=== PATIENT | female | born 1990 | race Caucasian/White ===

== ENCOUNTER → 2016-07-24 | Outpatient (CLI) | payer SELFPAY ==
[2015-11-08 11:41] VITALS: BP 128/88
--- NOTE | 2016-07-24 15:55 | RAD ---
HISTORY: Chronic wrist joint pain Study: Left wrist three view Comparison: None Findings: No evidence for acute cortical disruption or dislocation can be identified. The carpal bones appear well aligned. The visualized portions of the distal radius and ulna are unremarkable. No signific ant soft tissue abnormality can be identified. the joints are normal. IMPRESSION: 1. Negative exam. Reported By:
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
== END ==
LOC: RAD 14:57
PROVIDERS: ATTEND Nurse Practitioner Family
DX: M25.532 Pain in left wrist (principal); M79.642 Pain in left hand; M79.89 Other specified soft tissue disorders
CPT/HCPCS: 73100; 73130

== ENCOUNTER 2016-07-29 04:15 | Emergency (ER) | payer SELFPAY ==
[2016-07-29 04:29] VITALS: BP 115/76; BMI 24.7
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
== END 2016-07-29 05:15 | disposition home or self-care (01) ==
LOC: ER 04:15
DX: M79.602 Pain in left arm (principal)
CPT/HCPCS: 99281; 99282

== ENCOUNTER 2017-01-11 01:13 | Emergency (ER) | payer SELFPAY ==
[2017-01-11 01:24] VITALS: BP 128/73; BMI 23.9
[2017-01-11] MEDS ORDERED: AUGMENTIN 500 MG/125 MG TAB PO ONE ×2 (02:04→02:17)
[2017-01-11] MEDS ORDERED: BENADRYL CAP 50 MG PO ONE (02:05)
[2017-01-11] MEDS ORDERED: MOTRIN TAB 800 MG PO STA (02:05)
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
[2017-01-11] MEDS ORDERED: MOTRIN TAB 800 MG PO ONE (02:17)
[2017-01-11] MEDS ORDERED: BENADRYL CAP/TAB 25 MG PO ONE (02:17)
== END 2017-01-11 02:39 | disposition home or self-care (01) ==
LOC: ER 01:13
DX: J01.80 Other acute sinusitis (principal); J02.9 Acute pharyngitis, unspecified
CPT/HCPCS: 99282

== ENCOUNTER 2017-03-11 14:32 | Emergency (ER) | payer SELFPAY ==
[2017-03-11 14:41] VITALS: BP 117/66; BMI 23.9
[2017-03-11] MEDS ORDERED: NS 1000 ML 1,000 ML IV ONE (14:47)
[2017-03-11] MEDS ORDERED: ZOFRAN INJ 4 MG VIAL IVP ONE (14:47)
--- NOTE | 2017-03-11 14:48 | DR.GENAD ---
HPI - PCP Primary Care Physician: VIR[place]IA WARNER - Complaint/Symptoms Chief Complaint Doctors Comments: Patient presents with complaint of nausea and vomitng this week. Denies diarrhea or fever. Admits to severe abdominal pain. She states that she has had H Pylori x two past three years. Pain is sharp, 8/10 , the pain is generalized but worse RLQ has been present all day. Chief Complaint:: "STOMACH ISSUES SINCE FRIDAY, CANT HOLD ANYTHING DOWN AND "IV BEEN VERY WEAK" - Source History Provided: Patient - Mode of Arrival Mode of Arrival: Ambulatory - Timing Onset of Chief Complaint: 03/07/17 PMH - PMH Past Medical History: Yes Past Medical History: Hypertension Past Surgical History: Yes Surgical History: , Ortho Surgery - Family History History of Family Medical Conditions: No - Social History Does patient currently use any type of tobacco product: Yes Have you used tobacco products in the last 12 months: Yes Type of Tobacco Use: Cigarettes How many years tobacco product used: 5 Does any household member use tobacco: No Alcohol Use: None Do you use any recreational Drugs:: No Lives With: Family Lives Where: Home - infectious screening In the last 2 months have you had wt loss of >10#?: NO Have you had fever, night sweats or hemotysis?: No Have you traveled outside the country in the last 6 months?: No Isolation: Standard ROS - Review of Systems Eyes: No Symptoms Reported ENTM: No Symptoms Reported Respiratoy: No Symptoms Reported Cardiovascular: No Symptoms Reported Gastrointestinal/Abdominal: Abdominal Pain Genitourinary: No Symptoms Reported Neurological: No Symptoms Reported Musculoskeletal: No Symptoms Reported Integumentary: No Symptoms Reported Hematologic/Lymphatic: No Symptoms Reported Endocrine: No Symptoms Reported Psychiatric: No Symptoms Reported PE - Vital Signs Vitals: Temperature 98.3 F Pulse Rate 80 Respiratory Rate 18 Blood Pressure 117/66 O2 Sat by Pulse Oximetry 99 - General Limitations: No Limitations General Appearance: Alert, In No Apparent Distress - Head Head Exam: Normal Inspection, Atraumatic - Eyes Eye exam: Normal Appearance, PERRL, EOMI - ENT ENT Exam: Normal Exam External Ear Exam: Normal External Inspection TM/Canal Exam: Bilateral Normal Nose Exam: Normal Nose Exam Mouth Exam: Normal Inspection Throat Exam: Normal Inspection - Neck Neck Exam: Normal Inspection, Full ROM - Chest Chest Inspection: Normal Inspection - Respiratory Respiratory Exam: Normal Lung Sounds Bilat Respiratory Exam: Bilateral Clear to Auscultation - Cardiovascular Cardiovascular Exam: Regular Rate, Normal Rhythm - Abdominal Exam Abdominal Exam: Normal Inspection, Normal Bowel Sounds Abdominal Tenderness: negative: RUQ, RLQ, LUQ, LLQ, Epigastrium, Suprapubic, Diffuse, Mild, Moderate, Severe, Other - Extremities Extremities Exam: Normal Inspection, Full ROM - Back Back Exam: Normal Inspection - Neurologic Neurological Exam: Alert, Oriented X3, CN II-XII Intact - Psychiatric Psychiatric Exam: Normal Affect - Skin Skin Exam: Warm, Dry, Intact Course - Treatment Treatment: Clonidine 0.1mg BP 126/61 - Reevaluation 1st: Improved - Consultation Called: 15:55 ROR - Labs Reviewed Result Diagrams: 03/11/17 14:59 03/11/17 14:59 Laboratory: WBC 8.3 X10^3/uL (3.6-10.0) 03/11/17 14:59 RBC 5.10 X10^6/uL (3.5-5.4) 03/11/17 14:59 Hgb 14.6 g/dL (12.0-16.0) 03/11/17 14:59 Hct 42.4 % (36.0-47.0) 03/11/17 14:59 MCV 83.0 fL (80.0-100.0) 03/11/17 14:59 MCH 28.5 pg (27.0-34.0) 03/11/17 14:59 MCHC 34.4 g/dL (33.0-35.0) 03/11/17 14:59 RDW 15.6 % (11.6-16.5) 03/11/17 14:59 Plt Count 268 X10^3/uL (150.0-450.0) 03/11/17 14:59 MPV 9.1 fL (7.4-11.0) 03/11/17 14:59 Neut % 65.1 % (42.0-75.0) 03/11/17 14:59 Lymph % 22.5 % (21.0-51.0) 03/11/17 14:59 [place] % 8.0 % (0.0-13.0) 03/11/17 14:59 Eos % 4.0 % (0.9-2.9) H 03/11/17 14:59 Baso % 0.4 % (0.2-1.0) 03/11/17 14:59 Neut # 5.4 x10^3/uL (2.2-4.8) H 03/11/17 14:59 Lymph # 1.9 X10^3/uL (1.3-2.9) 03/11/17 14:59 [place] # 0.7 x10^3/uL (0.3-0.8) 03/11/17 14:59 Eos # 0.3 x10^3/uL (0.0-0.2) H 03/11/17 14:59 Baso # 0.0 X10^3/uL (0.0-0.1) 03/11/17 14:59 Absolute Nucleated RBC 0.0 /100WBC 03/11/17 14:59 Sodium 138 mmol/L (136-145) 03/11/17 14:59 Corrected Sodium 138 mmol/L (136-145) 03/11/17 14:59 Potassium 3.8 mmol/L (3.5-5.1) 03/11/17 14:59 Chloride 104 mmol/L (98-107) 03/11/17 14:59 Carbon Dioxide 23.5 mmol/L (21-32) 03/11/17 14:59 BUN 15 mg/dL (7-18) 03/11/17 14:59 Creatinine 1.19 mg/dL (0.55-1.02) H 03/11/17 14:59 Est GFR (MDRD) Af Amer > 60 (>60) 03/11/17 14:59 Est GFR (MDRD) Non-Af 57 (>60) L 03/11/17 14:59 Glucose 115 mg/dL (65-99) H 03/11/17 14:59 Calcium 9.2 mg/dL (8.5-10.1) 03/11/17 14:59 Corrected Calcium TNP 03/11/17 14:59 Total Bilirubin 0.50 mg/dL (0.2-1.0) 03/11/17 14:59 AST 12 Units/L (15-37) L 03/11/17 14:59 ALT 14 Units/L (12-78) 03/11/17 14:59 Alkaline Phosphatase 68 Units/L (46-116) 03/11/17 14:59 C-Reactive Protein 5.80 mg/L (0-3.0) H 03/11/17 14:59 Total Protein 7.4 g/dL (6.4-8.2) 03/11/17 14:59 Albumin 3.9 g/dL (3.4-5.0) 03/11/17 14:59 Globulin 3.5 g/dL (2.5-4.5) 03/11/17 14:59 Albumin/Globulin Ratio 1.1 Ratio (1.1-2.1) 03/11/17 14:59 Amylase 37 Units/L (25-115) 03/11/17 14:59 Lipase 136 Units/L (73-393) 03/11/17 14:59 H. pylori IgG Antibody Positive (NEGATIVE) A 03/11/17 14:59 Streptococcus Screen Negative (NEGATIVE) 03/11/17 15:26 - Diagnosis Discharge Problem: Helicobacter pylori gastritis - Discharge Plan Condition: Stable - Follow ups/Referrals Follow ups/Referrals: WES WARNER [Primary Care Provider] - 3 days - Instructions
[2017-03-11] MEDS ORDERED: ZOFRAN INJ 4 MG VIAL ONE (14:57)
[2017-03-11] MEDS ORDERED: NS 1000 ML 1,000 ML ONE (14:57)
[2017-03-11] MEDS ORDERED: BENTYL I.M. INJ 10 MG IM ONE ×2 (15:12→15:13)
[2017-03-11 15:23] LABS: BASOPHILS % (AUTO) 0.4 % (0.2-1.0); EOSINOPHILS # (AUTO) 0.3 x10^3/uL (0.0-0.2); HEMATOCRIT 42.4 % (36.0-47.0); HEMOGLOBIN 14.6 g/dL (12.0-16.0); LYMPHOCYTES # (AUTO) 1.9 X10^3/uL (1.3-2.9); LYMPHOCYTES % (AUTO) 22.5 % (21.0-51.0); MEAN CORPUSCULAR HEMOGLOBIN 28.5 pg (27.0-34.0); MEAN CORPUSCULAR HGB CONC 34.4 g/dL (33.0-35.0); MEAN PLATELET VOLUME 9.1 fL (7.4-11.0); MONOCYTES # (AUTO) 0.7 x10^3/uL (0.3-0.8); NEUTROPHILS # (AUTO) 5.4 x10^3/uL (2.2-4.8); NEUTROPHILS % (AUTO) 65.1 % (42.0-75.0); PLATELET COUNT 268 X10^3/uL (150.0-450.0); RED CELL DISTRIBUTION WIDTH 15.6 % (11.6-16.5); WHITE BLOOD COUNT 8.3 X10^3/uL (3.6-10.0)
[2017-03-11 15:43] LABS: ALANINE AMINOTRANSFERASE 14 Units/L (12-78); ALBUMIN 3.9 g/dL (3.4-5.0); ALKALINE PHOSPHATASE 68 Units/L (46-116); AMYLASE 37 Units/L (25-115); ASPARTATE AMINO TRANSFERASE 12 Units/L (15-37); BLOOD UREA NITROGEN 15 mg/dL (7-18); CALCIUM 9.2 mg/dL (8.5-10.1); CARBON DIOXIDE 23.5 mmol/L (21-32); CHLORIDE 104 mmol/L (98-107); COR NA(FOR HYPERGLY) 138 mmol/L (136-145); CREATININE 1.19 mg/dL (0.55-1.02); LIPASE 136 Units/L (73-393); SODIUM 138 mmol/L (136-145); TOTAL PROTEIN 7.4 g/dL (6.4-8.2); eGFR BLACK RACES > 60 (>60); eGFR NON BLACK RACES 57 (>60)
[2017-03-11 16:19] LABS: BILIRUBIN,URINE NEGATIVE (NEGATIVE); BLOOD/HEMOGLOBIN,URINE 3+ (NEGATIVE); GLUCOSE, URINE NEGATIVE (NEGATIVE); KETONES,URINE 2+ (NEGATIVE); LEUKOCYTE ESTERASE ,URINE 3+ (NEGATIVE); NITRITES,URINE NEGATIVE (NEGATIVE); PROTEIN,URINE 2+ (NEGATIVE); UROBILINOGEN,URINE NORMAL (NORMAL)
[2017-03-11 16:37] LABS: APPEARANCE,URINE SLIGHTLY HAZY (CLEAR); BACTERIA,URINE TRACE /HPF (NEGATIVE); COLOR,URINE YELLOW (YELLOW); SQUAMOUS EPITHELIAL CELL,UR FEW /HPF (NEGATIVE)
[2017-03-11 16:38] LABS: MUCUS,URINE MODERATE /HPF (NEGATIVE)
== END 2017-03-11 16:21 | disposition home or self-care (01) ==
LOC: ER 14:46
DX: R10.31 Right lower quadrant pain (principal); B96.81 Helicobacter pylori [H. pylori] as the cause of diseases classified elsewhere; B95.1 Streptococcus, group B, as the cause of diseases classified elsewhere
CPT/HCPCS: 36415; 80053; 81001; 82150; 83690; 85025; 86140; 86677; 87070; 87086; 87088; 87186; 87880; 96365; 96372; 96374; 99283; A4222; J0500; J2405

== ENCOUNTER 2017-04-16 23:46 | Emergency (ER) | payer SELFPAY ==
[2017-04-16 23:56] VITALS: BMI 30.1
--- NOTE | 2017-04-17 00:25 | DR.GENAD ---
HPI - PCP Primary Care Physician: TIMYM - HPI Comment HPI Comment: STARTING TO HAVE SKIN RASH ALSO. SOME ABDOMINAL PAIN PRESENT. - Complaint/Symptoms Chief Complaint Doctors Comments: GENERALIZE MALAISE, SOB AND NO BM IN 4 DAYS. Chief Complaint:: PT STATES" I BEEN FEELING BAD I HVE NOT HAD A BOWEL MOVEMENT IN 4 DAYS I BEEN STRAINING REAL HARD. I STARTED TO COME UP HERE LAST NIGHT CAUSE I FELT LIKE I COULDN'T BREATHE" - Nurses notes reviewed Nurses Notes Review: Yes - Source History Provided: Patient - Mode of Arrival Mode of Arrival: Ambulatory - Timing Onset of Chief Complaint: 04/12/17 Came on: Suddenly - Duration Duration: Constant Duration: Days - Severity Severity: Moderate PMH - PMH Past Medical History: Yes Past Medical History: Anxiety, Hypertension Past Surgical History: Yes Surgical History: , Ortho Surgery - Family History History of Family Medical Conditions: No - Social History Have you used tobacco products in the last 12 months: Yes Does any household member use tobacco: No Do you use any recreational Drugs:: No Lives With: Family Lives Where: Home - infectious screening In the last 2 months have you had wt loss of >10#?: NO Have you had fever, night sweats or hemotysis?: No Have you traveled outside the country in the last 6 months?: No Isolation: Standard ROS - Review of Systems Constitutional: Weakness, Fatigue. negative: Chills, Fever Eyes: negative: Eye Pain, Discharge ENTM: Nose Congestion, Throat Pain. negative: Ear Pain, Nose Discharge Respiratoy: Non-Productive Cough. negative: Short of Breath, Wheezing, Hemoptysis Cardiovascular: No Symptoms Reported Gastrointestinal/Abdominal: Abdominal Pain, Constipation, Nausea. negative: Diarrhea, Vomiting Genitourinary: No Symptoms Reported. negative: Dysuria, Frequency, Hematuria Neurological: Headache, Weakness, Dizziness Musculoskeletal: Muscle Pain Integumentary: Change in Color, Rash, Itching. negative: Juandice Hematologic/Lymphatic: No Symptoms Reported Endocrine: No Symptoms Reported All Other Systems: Reviewed and Negative PE - Vital Signs Vitals: Temperature 97.5 F Pulse Rate [Right Brachial] 77 Pulse Rate 136 Respiratory Rate 16 Blood Pressure [Right Arm] 115/72 Blood Pressure 172/86 O2 Sat by Pulse Oximetry 99 - General Limitations: No Limitations General Appearance: Alert - Head Head Exam: Normal Inspection - Eyes Eye exam: Normal Appearance - ENT ENT Exam: Normal External Ear Exam External Ear Exam: Normal External Inspection TM/Canal Exam: Bilateral Normal Nose Exam: Normal Nose Exam Mouth Exam: Normal Inspection Throat Exam: Tonsillar Erythema. negative: Tonsillomegaly, Tonsillar Exudate - Neck Neck Exam: Trachea Midline - Chest Chest Inspection: Symmetric Chest Wall Rise - Respiratory Respiratory Exam: Normal Lung Sounds Bilat Respiratory Exam: Bilateral Clear to Auscultation - Cardiovascular Cardiovascular Exam: Regular Rate, Normal Rhythm, Normal Heart Sounds - Abdominal Exam Abdominal Exam: Normal Bowel Sounds, Soft. negative: Tenderness - Extremities Extremities Exam: Normal Inspection - Back Back Exam: Normal Inspection - Neurologic Neurological Exam: Alert, Oriented X3 - Psychiatric Psychiatric Exam: Normal Affect, Normal Mood - Skin Skin Exam: Normal Color MDM - Additional Information Additional Information Obtained From: Family - Differential Diagnosis Differential Diagnosis: ABDOMINAL PAIN, GENERALIZE WEAKNESS, RASH Course - Treatment Treatment: SEE ORDERS. - Education/Counseling Education/Counseling: Patient, Family, Education Educated On: Diagnosis, Needs for Follow Up ROR - Labs Reviewed Laboratory Results Reviewed?: Yes Result Diagrams: 04/17/17 00:30 04/17/17 00:45 Laboratory: WBC 7.9 X10^3/uL (3.6-10.0) 04/17/17 00:30 RBC 4.47 X10^6/uL (3.5-5.4) 04/17/17 00:30 Hgb 12.9 g/dL (12.0-16.0) 04/17/17 00:30 Hct 37.6 % (36.0-47.0) 04/17/17 00:30 MCV 84.1 fL (80.0-100.0) 04/17/17 00:30 MCH 28.8 pg (27.0-34.0) 04/17/17 00:30 MCHC 34.3 g/dL (33.0-35.0) 04/17/17 00:30 RDW 14.6 % (11.6-16.5) 04/17/17 00:30 Plt Count 271 X10^3/uL (150.0-450.0) 04/17/17 00:30 MPV 9.3 fL (7.4-11.0) 04/17/17 00:30 Neut % 55.1 % (42.0-75.0) 04/17/17 00:30 Lymph % 25.1 % (21.0-51.0) 04/17/17 00:30 [place] % 11.2 % (0.0-13.0) 04/17/17 00:30 Eos % 5.9 % (0.9-2.9) H 04/17/17 00:30 Baso % 2.7 % (0.2-1.0) H 04/17/17 00:30 Neut # 4.3 x10^3/uL (2.2-4.8) 04/17/17 00:30 Lymph # 2.0 X10^3/uL (1.3-2.9) 04/17/17 00:30 [place] # 0.9 x10^3/uL (0.3-0.8) H 04/17/17 00:30 Eos # 0.5 x10^3/uL (0.0-0.2) H 04/17/17 00:30 Baso # 0.2 X10^3/uL (0.0-0.1) H 04/17/17 00:30 Absolute Nucleated RBC 0.0 /100WBC 04/17/17 00:30 Sodium 140 mmol/L (136-145) 04/17/17 00:45 Corrected Sodium TNP 04/17/17 00:45 Potassium 3.7 mmol/L (3.5-5.1) 04/17/17 00:45 Chloride 106 mmol/L (98-107) 04/17/17 00:45 Carbon Dioxide 26.4 mmol/L (21-32) 04/17/17 00:45 BUN 8 mg/dL (7-18) 04/17/17 00:45 Creatinine 0.87 mg/dL (0.55-1.02) 04/17/17 00:45 Est GFR (MDRD) Af Amer > 60 (>60) 04/17/17 00:45 Est GFR (MDRD) Non-Af > 60 (>60) 04/17/17 00:45 Glucose 94 mg/dL (65-99) 04/17/17 00:45 Calcium 8.3 mg/dL (8.5-10.1) L 04/17/17 00:45 Corrected Calcium TNP 04/17/17 00:45 Total Bilirubin 0.10 mg/dL (0.2-1.0) L 04/17/17 00:45 AST 12 Units/L (15-37) L 04/17/17 00:45 ALT 16 Units/L (12-78) 04/17/17 00:45 Alkaline Phosphatase 51 Units/L (46-116) 04/17/17 00:45 Total Protein 6.6 g/dL (6.4-8.2) 04/17/17 00:45 Albumin 3.6 g/dL (3.4-5.0) 04/17/17 00:45 Globulin 3.0 g/dL (2.5-4.5) 04/17/17 00:45 Albumin/Globulin Ratio 1.2 Ratio (1.1-2.1) 04/17/17 00:45 Amylase 43 Units/L (25-115) 04/17/17 00:30 Lipase 164 Units/L (73-393) 04/17/17 00:30 Specimen Type Clean catch urine 04/17/17 00:43 Urine Color Yellow (YELLOW) 04/17/17 00:43 Urine Appearance Slightly hazy (CLEAR) 04/17/17 00:43 Urine pH 6.0 (5.0 - 8.0) 04/17/17 00:43 Ur Specific [place] 1.015 (1.000-1.030) 04/17/17 00:43 Urine Protein Negative (NEGATIVE) 04/17/17 00:43 Urine Glucose (UA) Negative (NEGATIVE) 04/17/17 00:43 Urine Ketones Negative (NEGATIVE) 04/17/17 00:43 Urine Occult Blood 2+ (NEGATIVE) 04/17/17 00:43 Urine Nitrite Negative (NEGATIVE) 04/17/17 00:43 Urine Bilirubin Negative (NEGATIVE) 04/17/17 00:43 Urine Urobilinogen Normal (NORMAL) 04/17/17 00:43 Ur Leukocyte Esterase 3+ (NEGATIVE) 04/17/17 00:43 Urine RBC 3-8 /HPF (NEGATIVE) 04/17/17 00:43 Urine WBC 20-25 /HPF (NEGATIVE) 04/17/17 00:43 Ur Squamous Epith Cells Many /HPF (NEGATIVE) 04/17/17 00:43 Urine Bacteria Trace /HPF (NEGATIVE) 04/17/17 00:43 Urine Trichomonas Few /HPF (NEGATIVE) 04/17/17 00:43 Ur Culture Indicated? Yes/culture set up 04/17/17 00:43 Influenza Type A (PCR) Negative (NEGATIVE) 04/17/17 00:24 Influenza Type B (PCR) Negative (NEGATIVE) 04/17/17 00:24 S. pyogenes (TEM-PCR) Not detected (NOT DETECT) 04/17/17 00:24 - XRAY XRAY Interpreted by: Radiologist XRAY Findings: REPORT DISCUSS WITH PATIENT. - Diagnosis Discharge Problem: Viral syndrome, Malaise Abdominal pain Qualifiers: Abdominal location: generalized Qualified Code(s): R10.84 - Generalized abdominal pain - Discharge Plan Disposition: 01 HOME, SELF-CARE Condition: Stable Prescriptions: Ketorolac Tromethamine [Toradol Tab] 10 mg PO Q8H PRN #15 tab PRN Reason: Pain Ranitidine HCl [ZANTAC TAB 150 MG *] 150 mg PO BID #60 tab Sulfamethoxazole-Trimethoprim [BACTRIM DS TAB 800/160 MG *] 1 tab PO BID #20 tab - Follow ups/Referrals Follow ups/Referrals: WES WARNER [Primary Care Provider] - 3 days - Instructions Instructions: Urinary Tract Infection, Adult, [id number], Abdominal Pain, Adult, [id number]-[id number], Rash, [id number] Additional Instructions: RETURN TO ED IF WORSE.
[2017-04-17 01:06] LABS: BASOPHILS # (AUTO) 0.2 X10^3/uL (0.0-0.1); BASOPHILS % (AUTO) 2.7 % (0.2-1.0); EOSINOPHILS # (AUTO) 0.5 x10^3/uL (0.0-0.2); EOSINOPHILS % (AUTO) 5.9 % (0.9-2.9); HEMATOCRIT 37.6 % (36.0-47.0); HEMOGLOBIN 12.9 g/dL (12.0-16.0); LYMPHOCYTES % (AUTO) 25.1 % (21.0-51.0); MEAN CORPUSCULAR HEMOGLOBIN 28.8 pg (27.0-34.0); MEAN CORPUSCULAR HGB CONC 34.3 g/dL (33.0-35.0); MEAN CORPUSCULAR VOLUME 84.1 fL (80.0-100.0); MEAN PLATELET VOLUME 9.3 fL (7.4-11.0); MONOCYTES # (AUTO) 0.9 x10^3/uL (0.3-0.8); MONOCYTES % (AUTO) 11.2 % (0.0-13.0); NEUTROPHILS # (AUTO) 4.3 x10^3/uL (2.2-4.8); NEUTROPHILS % (AUTO) 55.1 % (42.0-75.0); PLATELET COUNT 271 X10^3/uL (150.0-450.0); RED BLOOD COUNT 4.47 X10^6/uL (3.5-5.4); RED CELL DISTRIBUTION WIDTH 14.6 % (11.6-16.5); WHITE BLOOD COUNT 7.9 X10^3/uL (3.6-10.0)
--- NOTE | 2017-04-17 01:23 | RAD ---
Acute abdomen series-three views Indication: Abdominal pain and diarrhea. Findings: There is no pneumothorax or effusion. The heart size is normal. There is no free air or pneumatosis. Gas and stool are seen in the colon. No dilated loop of small nidia wel identified. Impression: No acute abnormality. Reported By:
[2017-04-17 01:47] LABS: AMYLASE 43 Units/L (25-115); LIPASE 164 Units/L (73-393)
[2017-04-17 01:48] LABS: ALANINE AMINOTRANSFERASE 16 Units/L (12-78); ALBUMIN 3.6 g/dL (3.4-5.0); ALKALINE PHOSPHATASE 51 Units/L (46-116); ASPARTATE AMINO TRANSFERASE 12 Units/L (15-37); BLOOD UREA NITROGEN 8 mg/dL (7-18); CALCIUM 8.3 mg/dL (8.5-10.1); CARBON DIOXIDE 26.4 mmol/L (21-32); CHLORIDE 106 mmol/L (98-107); CREATININE 0.87 mg/dL (0.55-1.02); SODIUM 140 mmol/L (136-145); TOTAL PROTEIN 6.6 g/dL (6.4-8.2); eGFR BLACK RACES > 60 (>60); eGFR NON BLACK RACES > 60 (>60)
[2017-04-17 02:11] LABS: BILIRUBIN,URINE NEGATIVE (NEGATIVE); BLOOD/HEMOGLOBIN,URINE 2+ (NEGATIVE); GLUCOSE, URINE NEGATIVE (NEGATIVE); KETONES,URINE NEGATIVE (NEGATIVE); LEUKOCYTE ESTERASE ,URINE 3+ (NEGATIVE); NITRITES,URINE NEGATIVE (NEGATIVE); PROTEIN,URINE NEGATIVE (NEGATIVE); UROBILINOGEN,URINE NORMAL (NORMAL)
[2017-04-17 02:14] LABS: APPEARANCE,URINE SLIGHTLY HAZY (CLEAR); BACTERIA,URINE TRACE /HPF (NEGATIVE); COLOR,URINE YELLOW (YELLOW); SQUAMOUS EPITHELIAL CELL,UR MANY /HPF (NEGATIVE); TRICHOMONAS,URINE FEW /HPF (NEGATIVE)
[2017-04-17 02:28] VITALS: BP 115/72
[2017-04-17] MEDS ORDERED: BACTRIM DS TAB PO ONE ×2 (02:28→02:29)
== END 2017-04-17 02:31 | disposition home or self-care (01) ==
LOC: ER 23:46
DX: R53.81 Other malaise (principal); B97.89 Other viral agents as the cause of diseases classified elsewhere; R10.84 Generalized abdominal pain
CPT/HCPCS: 36415; 74022; 80053; 81001; 82150; 83690; 85025; 87086; 87502; 87651; 99283; 99284

== ENCOUNTER 2017-05-25 20:33 | Emergency (ER) | payer SELFPAY ==
[2017-05-25 21:01] VITALS: BP 142/79; BMI 23.0
[2017-05-25] MEDS ORDERED: REGLAN INJ 10 MG VIAL IVP STA (21:34)
[2017-05-25] MEDS ORDERED: NS 1000 ML 1,000 ML IV ONE (21:35)
[2017-05-25] MEDS ORDERED: NS 1000 ML 1,000 ML ONE (21:43)
[2017-05-25] MEDS ORDERED: REGLAN INJ 10 MG VIAL ONE (21:43)
--- NOTE | 2017-05-25 21:44 | DR.NAUSEAF ---
HPI - Time Seen Time seen: 20:20 - Primary Care Physician Primary Care Physician: TIMMY - HPI Comment HPI Comment: Cannot keep anything down since Friday, has tested + for Hpylori x 2, took abx for it about 1 month ago. No diarrhea. Chills but no measured fevers. - Complaints Chief Complaint:: N/V SINCE FRIDAY AROUND 1100, DECREASED APPETITE ALL [place]. BURNING SENSATION IN CHEST. TESTED POSITIVE FOR H PYLORI TWICE, LAST TIME WAS ABOUT A MONTH AGO. Self Treatment fo Chief Complaint: ZOFRAN AND PHENERGAN NOT WORKING - Reviewed Nurses Notes Reviewed: Yes - Source History Provided: Patient - Mode of Arrival Mode of Arrival: Ambulatory - Timing Onset of Chief Complaint: 05/23/17 PMH - PMH Past Medical History: Yes (+ Hpylori previously. ) Past Medical History: Anxiety, Hypertension Past Surgical History: Yes (remote surgery left thigh) Surgical History: , Ortho Surgery - Family History History of Family Medical Conditions: No - Social History Type of Tobacco Use: Cigarettes Alcohol Use: None Do you use any recreational Drugs:: No Lives With: Family Lives Where: Home - infectious screening Have you traveled outside the country in the last 6 months?: No Isolation: Standard ROS - Review of Systems Constitutional: Chills, Malaise, Fatigue, Loss of Appetite Eyes: No Symptoms Reported ENTM: No Symptoms Reported Respiratoy: No Symptoms Reported Cardiovascular: No Symptoms Reported Gastrointestinal/Abdominal: See HPI, Abdominal Pain, Nausea, Vomiting, Other ( burning epigastric pain) Neurological: No Symptoms Reported Musculoskeletal: Other (chronic LLE, LUE problems from old accident) Integumentary: No Symptoms Reported Hematologic/Lymphatic: No Symptoms Reported Endocrine: No Symptoms Reported Psychiatric: No Symptoms Reported All Other Systems: Reviewed and Negative PE - Vital Signs Vitals: Temperature 99.1 F Pulse Rate 59 Respiratory Rate 18 Blood Pressure [Right Arm] 115/72 Blood Pressure 142/79 O2 Sat by Pulse Oximetry 98 - General Limitations: No Limitations General Appearance: Alert, In No Apparent Distress - Head Head Exam: Normal Inspection - Eyes Eye exam: Normal Appearance - ENT ENT Exam: Normal Exam, Normal Oropharynx - Neck Neck Exam: Normal Inspection, Full ROM, Trachea Midline - Chest Chest Inspection: Symmetric Chest Wall Rise - Respiratory Respiratory Exam: Normal Lung Sounds Bilat Respiratory Exam: Bilateral Clear to Auscultation - Cardiovascular Cardiovascular Exam: Regular Rate, Normal Rhythm, Normal Heart Sounds - Abdominal Exam Abdominal Exam: Normal Inspection, Normal Bowel Sounds, Soft, Tenderness (mild generalized TTP, nothing focal). negative: Guarding, Rebound, Rigidity, Organomegaly, Ascites, Mass, Bruit, Pulsatile Mass, Hernia Abdominal Tenderness: Diffuse - Rectal Rectal Exam: Deferred - External Exam: Female: Deferred - Extremities Extremities Exam: Full ROM - Neurologic Neurological Exam: Alert, Oriented X3 - Psychiatric Psychiatric Exam: Normal Affect, Normal Mood - Skin Skin Exam: Warm, Dry, Intact ROR - Labs Reviewed Laboratory Results Reviewed?: Yes (reviewed with pt, +UTI) Result Diagrams: 05/25/17 21:45 05/25/17 21:45 Laboratory: WBC 9.2 X10^3/uL (3.6-10.0) 05/25/17 21:45 RBC 4.82 X10^6/uL (3.5-5.4) 05/25/17 21:45 Hgb 13.9 g/dL (12.0-16.0) 05/25/17 21:45 Hct 40.5 % (36.0-47.0) 05/25/17 21:45 MCV 83.9 fL (80.0-100.0) 05/25/17 21:45 MCH 28.9 pg (27.0-34.0) 05/25/17 21:45 MCHC 34.4 g/dL (33.0-35.0) 05/25/17 21:45 RDW 14.6 % (11.6-16.5) 05/25/17 21:45 Plt Count 279 X10^3/uL (150.0-450.0) 05/25/17 21:45 MPV 8.6 fL (7.4-11.0) 05/25/17 21:45 Neut % (Auto) 56.5 % (42.0-75.0) 05/25/17 21:45 Lymph % (Auto) 27.4 % (21.0-51.0) 05/25/17 21:45 [place] % (Auto) 11.5 % (0.0-13.0) 05/25/17 21:45 Eos % (Auto) 3.1 % (0.9-2.9) H 05/25/17 21:45 Baso % (Auto) 1.5 % (0.2-1.0) H 05/25/17 21:45 Neut # (Auto) 5.2 x10^3/uL (2.2-4.8) H 05/25/17 21:45 Lymph # (Auto) 2.5 X10^3/uL (1.3-2.9) 05/25/17 21:45 [place] # (Auto) 1.1 x10^3/uL (0.3-0.8) H 05/25/17 21:45 Eos # (Auto) 0.3 x10^3/uL (0.0-0.2) H 05/25/17 21:45 Baso # (Auto) 0.1 X10^3/uL (0.0-0.1) 05/25/17 21:45 Absolute Nucleated RBC 0.0 /100WBC 05/25/17 21:45 Sodium 138 mmol/L (136-145) 05/25/17 21:45 Corrected Sodium TNP 05/25/17 21:45 Potassium 3.3 mmol/L (3.5-5.1) L 05/25/17 21:45 Chloride 102 mmol/L (98-107) 05/25/17 21:45 Carbon Dioxide 26.4 mmol/L (21-32) 05/25/17 21:45 BUN 9 mg/dL (7-18) 05/25/17 21:45 Creatinine 0.84 mg/dL (0.55-1.02) 05/25/17 21:45 Est GFR (MDRD) Af Amer > 60 (>60) 05/25/17 21:45 Est GFR (MDRD) Non-Af > 60 (>60) 05/25/17 21:45 Glucose 101 mg/dL (65-99) H 05/25/17 21:45 Calcium 8.3 mg/dL (8.5-10.1) L 05/25/17 21:45 Corrected Calcium TNP 05/25/17 21:45 Total Bilirubin 0.40 mg/dL (0.2-1.0) 05/25/17 21:45 AST 12 Units/L (15-37) L 05/25/17 21:45 ALT 18 Units/L (12-78) 05/25/17 21:45 Alkaline Phosphatase 62 Units/L (46-116) 05/25/17 21:45 Total Protein 7.5 g/dL (6.4-8.2) 05/25/17 21:45 Albumin 4.0 g/dL (3.4-5.0) 05/25/17 21:45 Globulin 3.5 g/dL (2.5-4.5) 05/25/17 21:45 Albumin/Globulin Ratio 1.1 Ratio (1.1-2.1) 05/25/17 21:45 Amylase 36 Units/L (25-115) 05/25/17 21:45 Lipase 100 Units/L (73-393) 05/25/17 21:45 HCG, Qual Negative <10 mIU/mL 05/25/17 21:45 Specimen Type Clean catch urine 05/25/17 22:56 Urine Color Yellow (YELLOW) 05/25/17 22:56 Urine Appearance Slightly hazy (CLEAR) 05/25/17 22:56 Urine pH 7.0 (5.0 - 8.0) 05/25/17 22:56 Ur Specific [place] 1.005 (1.000-1.030) 05/25/17 22:56 Urine Protein 2+ (NEGATIVE) 05/25/17 22:56 Urine Glucose (UA) Negative (NEGATIVE) 05/25/17 22:56 Urine Ketones Negative (NEGATIVE) 05/25/17 22:56 Urine Occult Blood 2+ (NEGATIVE) 05/25/17 22:56 Urine Nitrite Negative (NEGATIVE) 05/25/17 22:56 Urine Bilirubin Negative (NEGATIVE) 05/25/17 22:56 Urine Urobilinogen Normal (NORMAL) 05/25/17 22:56 Ur Leukocyte Esterase 3+ (NEGATIVE) 05/25/17 22:56 Urine RBC 10-15 /HPF (NONE SEEN) 05/25/17 22:56 Urine WBC 35-40 /HPF (NONE SEEN) 05/25/17 22:56 Ur Squamous Epith Cells Numerous /HPF (NEGATIVE) 05/25/17 22:56 Urine Bacteria Trace /HPF (NEGATIVE) 05/25/17 22:56 Ur Culture Indicated? Yes/culture set up 05/25/17 22:56 - XRAY XRAY Interpreted by: Radiologist XRAY Findings: CT abd nonacute - Diagnosis Discharge Problem: Nausea and vomiting in adult patient UTI (urinary tract infection) Qualifiers: Encounter type: initial encounter - Discharge Plan Disposition: HOME, SELF-CARE Condition: Good Prescriptions: Metoclopramide HCl [Reglan] 10 mg PO ACHS #20 tab Nitrofurantoin Macro [Macrobid Cap 100 mg Ext Rel] 100 mg PO BID #14 cap - Follow ups/Referrals Follow ups/Referrals: WES WARNER [Primary Care Provider] - 3 days - Instructions Instructions: Nausea and Vomiting, Adult, [id number], Urinary Tract Infection , Adult, [id number] Additional Notes - Additional Notes Additional Notes: feels much better after reglan, no further NV
[2017-05-25 21:57] LABS: BASOPHILS # (AUTO) 0.1 X10^3/uL (0.0-0.1); BASOPHILS % (AUTO) 1.5 % (0.2-1.0); EOSINOPHILS # (AUTO) 0.3 x10^3/uL (0.0-0.2); EOSINOPHILS % (AUTO) 3.1 % (0.9-2.9); HEMATOCRIT 40.5 % (36.0-47.0); HEMOGLOBIN 13.9 g/dL (12.0-16.0); LYMPHOCYTES # (AUTO) 2.5 X10^3/uL (1.3-2.9); LYMPHOCYTES % (AUTO) 27.4 % (21.0-51.0); MEAN CORPUSCULAR HEMOGLOBIN 28.9 pg (27.0-34.0); MEAN CORPUSCULAR HGB CONC 34.4 g/dL (33.0-35.0); MEAN CORPUSCULAR VOLUME 83.9 fL (80.0-100.0); MEAN PLATELET VOLUME 8.6 fL (7.4-11.0); MONOCYTES # (AUTO) 1.1 x10^3/uL (0.3-0.8); MONOCYTES % (AUTO) 11.5 % (0.0-13.0); NEUTROPHILS # (AUTO) 5.2 x10^3/uL (2.2-4.8); NEUTROPHILS % (AUTO) 56.5 % (42.0-75.0); PLATELET COUNT 279 X10^3/uL (150.0-450.0); RED BLOOD COUNT 4.82 X10^6/uL (3.5-5.4); RED CELL DISTRIBUTION WIDTH 14.6 % (11.6-16.5); WHITE BLOOD COUNT 9.2 X10^3/uL (3.6-10.0)
[2017-05-25 22:03] LABS: ALANINE AMINOTRANSFERASE 18 Units/L (12-78); ALKALINE PHOSPHATASE 62 Units/L (46-116); AMYLASE 36 Units/L (25-115); ASPARTATE AMINO TRANSFERASE 12 Units/L (15-37); BLOOD UREA NITROGEN 9 mg/dL (7-18); CALCIUM 8.3 mg/dL (8.5-10.1); CARBON DIOXIDE 26.4 mmol/L (21-32); CHLORIDE 102 mmol/L (98-107); CREATININE 0.84 mg/dL (0.55-1.02); LIPASE 100 Units/L (73-393); SODIUM 138 mmol/L (136-145); TOTAL PROTEIN 7.5 g/dL (6.4-8.2); eGFR BLACK RACES > 60 (>60); eGFR NON BLACK RACES > 60 (>60)
[2017-05-25 22:06] LABS: SERUM PREGNANCY TEST, QUAL NEGATIVE <10 mIU/mL
[2017-05-25 23:41] LABS: BILIRUBIN,URINE NEGATIVE (NEGATIVE); BLOOD/HEMOGLOBIN,URINE 2+ (NEGATIVE); GLUCOSE, URINE NEGATIVE (NEGATIVE); KETONES,URINE NEGATIVE (NEGATIVE); LEUKOCYTE ESTERASE ,URINE 3+ (NEGATIVE); NITRITES,URINE NEGATIVE (NEGATIVE); PROTEIN,URINE 2+ (NEGATIVE); UROBILINOGEN,URINE NORMAL (NORMAL)
[2017-05-25 23:47] LABS: APPEARANCE,URINE SLIGHTLY HAZY (CLEAR); BACTERIA,URINE TRACE /HPF (NEGATIVE); COLOR,URINE YELLOW (YELLOW); SQUAMOUS EPITHELIAL CELL,UR NUMEROUS /HPF (NEGATIVE)
--- NOTE | 2017-05-25 23:51 | CT ---
CT abdomen and pelvis with contrast Indication: Abdominal pain, diarrhea Technique: Helical CT images of the abdomen and pelvis were obtained with IV contrast. Reformatted im ages in the coronal and sagittal planes were also generated for review. Comparison: None Findings: Lung bases are clear. No aggressive osseous lesions are identified. A few small probable cysts are noted throughout the liver. The gallbladder, spleen, pancreas, adrenal s and kidneys are unremarkable. There is no bowel inflammation or obstruction. The appendix is normal. The IVC, abdominal aorta and u rinary bladder are normal. The uterus and adnexa are grossly within normal limits. No free air, free fluid or lymphadenopathy is identified. Impression: No acute abnormality identified to explain patient's symptoms. Reported By:
[2017-05-26] MEDS ORDERED: MACROBID CAP 100 MG EXT REL PO ONE (00:25)
[2017-05-26] MEDS ORDERED: MACROBID CAP 100 MG EXT REL PO SCH (01:00)
== END 2017-05-26 00:41 | disposition home or self-care (01) ==
LOC: ER 20:33
DX: R11.2 Nausea with vomiting, unspecified (principal); N39.0 Urinary tract infection, site not specified
CPT/HCPCS: 36415; 74177; 80053; 81001; 82150; 83690; 84703; 85025; 87086; 96365; 96367; 96374; 99282; 99283; A4216; A4222; J2765